=== PATIENT | female | born 1960 | race Caucasian/White ===

== ENCOUNTER → 2016-06-08 | Outpatient (CLI) | payer SELFPAY ==
[2016-06-08 16:15] LABS: URINE SAMPLE TYPE VOIDED SPECIMEN
[2016-06-08 16:16] LABS: BILIRUBIN,URINE NEGATIVE (NEG); CLARITY,URINE CLEAR (CLEAR); GLUCOSE, URINE (UA) NEGATIVE (NEG); LEUKOCYTE ESTERASE ,URINE NEGATIVE (NEG); NITRATE,URINE NEGATIVE (NEG); OCCULT BLOOD,URINE SMALL (NEG); PH,URINE 5.5 (5.0-8.5); PROTEIN,URINE NEGATIVE (NEG); SQUAMOUS EPITHELIAL CELL,UR RARE; UROBILINOGEN,URINE 0.2 mg/dL (0.2)
== END ==
LOC: MOB LAB 12:00
PROVIDERS: ATTEND Internal Medicine
DX: E03.9 Hypothyroidism, unspecified (principal)
CPT/HCPCS: 81001